=== PATIENT | male | born 2000 | race Caucasian/White ===

== ENCOUNTER 2018-04-13 04:54 | Emergency (ER) | payer OTHER ==
[2018-04-13] MEDS ORDERED: NS 1,000 ML IV ONE ×2 (05:24→05:52)
[2018-04-13] MEDS ORDERED: HALOPERIDOL LACT 5 MG/ML INJ IVP ONE ×2 (05:24→05:54)
--- NOTE | 2018-04-13 05:26 | EDPHY ---
H & P Stated Complaint: abd pain vomiting Time Seen by Provider: 04/13/18 05:24 HPI/ROS: Chief Complaint: Vomiting, abdominal pain HPI: 17-year-old male has been having episodes of nausea and vomiting daily for the last year and a half. He woke this morning and has had multiple episodes of vomiting and is not able to keep anything down. He has been worked up extensively for this including upper and lower endoscopies, GI consultation and psychiatric consultation without a definitive diagnosis. He was diagnosed with celiac disease but his symptoms persisted after he discontinued gluten. He does smoke marijuana daily but has quit for periods up to 2 weeks with no change in his symptoms. He has also been drinking alcohol occasionally. He has had increasing depression but denies being suicidal. He is on antidepressant medications at this time. No fevers or chills. No recent changes to his symptoms. He is presenting this morning because he has been able to keep his medications or anything else down. ROS: 10 systems were reviewed and were negative except those elements noted in the HPI. PMH: Celiac disease Social History: No smoking, occasional alcohol, daily marijuana Family History: non-contributory Physical Exam: Gen: Awake, Alert, No Distress HEENT: Nose: no rhinorrhea Eyes: PERRLA, EOMI Mouth: Moist mucosa Neck: Supple, no JVD Chest: nontender, lungs clear to auscultation Heart: S1, S2 normal, no murmur Abd: Soft, non-tender, no guarding Back: no CVA tenderness, no midline tenderness Ext: no edema, non-tender Skin: no rash Neuro: CN II-XII intact, Sensation grossly intact, Strength 5/5 in bilateral upper and lower extremities - Personal History Current Tetanus/Diphtheria Vaccine: Yes Current Tetanus Diphtheria and Acellular Pertussis (TDAP): Yes - Medical/Surgical History Hx Asthma: No Hx Chronic Respiratory Disease: No Hx Diabetes: No Hx Cardiac Disease: No Hx Renal Disease: No Hx Cirrhosis: No Hx Alcoholism: No Hx HIV/AIDS: No Hx Splenectomy or Spleen Trauma: No - Social History Smoking Status: Current some day smoker Constitutional: Initial Vital Signs Temperature (C) 36.7 C 04/13/18 05:03 Heart Rate 102 H 04/13/18 05:03 Respiratory Rate 18 04/13/18 05:03 Blood Pressure 123/80 H 04/13/18 05:03 O2 Sat (%) 97 04/13/18 05:03 O2 Delivery Mode Room Air Allergies/Adverse Reactions: No Known Allergies Allergy (Unverified 12/13/11 21:25) Home Medications: Medication Instructions Recorded No Medications [NO HOME 1 ea MISC 12/13/11 MEDICATIONS] Lexapro 04/13/18 Nexium 04/13/18 Nortriptyline HCl 04/13/18 Ondansetron HCl Pf 04/13/18 Medical Decision Making ED Course/Re-evaluation: 17-year-old male presenting with daily nausea vomiting. He has worked up extensively for this. He does state that his symptoms persisted after he stopped marijuana however he only suffer 2 weeks. I suspect her might been at moment of cannabinoid hyperemesis with this. Will give him some IV fluids and Haldol here and reassess. - Data Points Laboratory Results: Laboratory Results 04/13/18 05:20 04/13/18 05:20 04/13/18 04/13/18 05:20 05:20 WBC 16.32 10^3/uL H 10^3/uL (3.80-9.50) RBC 5.43 10^6/uL 10^6/uL (4.40-6.38) Hgb 18.1 g/dL H g/dL (13.7-17.5) Hct 51.1 % H % (40.0-51.0) MCV 94.1 fL fL (81.5-99.8) MCH 33.3 pg pg (27.9-34.1) MCHC 35.4 g/dL g/dL (32.4-36.7) RDW 12.5 % % (11.5-15.2) Plt Count 210 10^3/uL 10^3/uL (150-400) MPV 9.0 fL fL (8.7-11.7) Neut % (Auto) 77.1 % H % (39.3-74.2) Lymph % (Auto) 15.4 % % (15.0-45.0) [place] % (Auto) 4.7 % % (4.5-13.0) Eos % (Auto) 0.4 % L % (0.6-7.6) Baso % (Auto) 0.6 % % (0.3-1.7) Nucleat RBC Rel Count 0.0 % % (0.0-0.2) Absolute Neuts (auto) 12.59 10^3/uL H 10^3/uL (1.70-6.50) Absolute Lymphs (auto) 2.52 10^3/uL 10^3/uL (1.00-3.00) Absolute Monos (auto) 0.76 10^3/uL 10^3/uL (0.30-0.80) Absolute Eos (auto) 0.06 10^3/uL 10^3/uL (0.03-0.40) Absolute Basos (auto) 0.10 10^3/uL 10^3/uL (0.02-0.10) Absolute Nucleated RBC 0.00 10^3/uL 10^3/uL (0-0.01) Immature Gran % 1.8 % H % (0.0-1.1) Immature Gran # 0.29 10^3/uL H 10^3/uL (0.00-0.10) Sodium 143 mEq/L mEq/L (135-145) Potassium 4.4 mEq/L mEq/L (3.3-5.0) Chloride 105 mEq/L mEq/L (97-110) Carbon Dioxide 16 mEq/l L mEq/l (22-31) Anion Gap 22 mEq/L H mEq/L (8-16) BUN 20 mg/dL mg/dL (7-23) Creatinine 0.8 mg/dL mg/dL (0.7-1.3) Estimated GFR > 60 Glucose 69 mg/dL L mg/dL (70-100) Calcium 10.1 mg/dL mg/dL (8.5-10.4) Medications Given: Discontinued Medications Diphenhydramine HCl (Benadryl Injection) 50 mg IVP EDNOW ONE Stop: 04/13/18 05:56 Last Admin: 04/13/18 06:01 Dose: 50 mg Haloperidol Lactate (Haldol Injection) 2.5 mg IVP EDNOW ONE Stop: 04/13/18 05:25 Last Admin: 04/13/18 05:30 Dose: 2.5 mg Sodium Chloride (Ns) 1,000 mls @ 0 mls/hr IV ONCE ONE; Wide Open PRN Reason: Protocol Stop: 04/13/18 05:25 Last Admin: 04/13/18 05:30 Dose: 1,000 mls Sodium Chloride (Ns) 1,000 mls @ 0 mls/hr IV ONCE ONE; Wide Open PRN Reason: Protocol Stop: 04/13/18 05:53 Last Admin: 04/13/18 06:01 Dose: 1,000 mls Departure - Departure Disposition: Home, Routine, Self-Care Clinical Impression: Nausea & vomiting Condition: Good Instructions: Acute Nausea and Vomiting (ED) Additional Instructions: Please consider stopping all cannabis use for at least 8 week's to see if this helps with her symptoms. Follow up with her [place] aide in 3-4 days for further evaluation. Return to the emergency department for worsening abdominal pain, uncontrolled nausea vomiting, fevers, fainting, or any other concerns. Referrals: HANNA GLEASON [Primary Care Provider] - As per Instructions
[2018-04-13 05:34] LABS: PLATELET COUNT 210 10^3/uL (150-400)
[2018-04-13 06:43] VITALS: BP 127/76
== END 2018-04-13 06:43 | disposition home or self-care (01) ==
DX: R11.2 Nausea with vomiting, unspecified (principal); E86.9 Volume depletion, unspecified; K90.0 Celiac disease; F17.200 Nicotine dependence, unspecified, uncomplicated
CPT/HCPCS: 96374; J1200; J1630

== ENCOUNTER 2018-04-13 08:09 | Emergency (ER) | payer OTHER ==
[2018-04-13] MEDS ORDERED: ONDANSETRON 4 MG/2 ML VIAL IVP ONE (08:38)
[2018-04-13] MEDS ORDERED: CAPSACIAN 0.075% CREAM TP ONE (08:56)
--- NOTE | 2018-04-13 08:57 | EDPHY ---
H & P Stated Complaint: Continuing mid abdo pain and vomiting, here this am for same. Time Seen by Provider: 04/13/18 08:38 - Personal History Current Tetanus Diphtheria and Acellular Pertussis (TDAP): Unsure - Medical/Surgical History Hx Asthma: No Hx Chronic Respiratory Disease: No Hx Diabetes: No Hx Cardiac Disease: No Hx Renal Disease: No Hx Cirrhosis: No Hx Alcoholism: No Hx HIV/AIDS: No Hx Splenectomy or Spleen Trauma: No Other PMH: Depression. - Social History Smoking Status: Current some day smoker Constitutional: Initial Vital Signs Heart Rate 105 H 04/13/18 08:10 Respiratory Rate 18 04/13/18 08:10 Blood Pressure 114/90 H 04/13/18 08:10 O2 Sat (%) 97 04/13/18 08:10 O2 Delivery Mode Room Air Allergies/Adverse Reactions: No Known Allergies Allergy (Unverified 12/13/11 21:25) Home Medications: Medication Instructions Recorded Lexapro 04/13/18 Nexium 04/13/18 Nortriptyline HCl 04/13/18 Ondansetron HCl Pf 04/13/18 Medical Decision Making - Diagnostics Imaging Results: Imaging Impressions Abdomen CT 04/13/18 09:04 Impression: Normal. No localized intraabdominal inflammatory process. No pneumoperitoneum, pancreatitis, or appendicitis. Findings discussed with Emergency Department physician, Daniel Campbell MD, on 04/13/2018 at 10:07 a.m. Imaging: Discussed imaging studies w/ fisher scallop Radiologist, I viewed and interpreted images myself ED Course/Re-evaluation: CHIEF COMPLAINT: N/V, epigastric pain HISTORY OF PRESENT ILLNESS: The patient is a 17 y/o male with a history of cyclic vomiting and depression returning with his father complaining of persistent vomiting and abdominal pain less than 2 hours after discharge for the same symptoms this morning. He has a long history of nausea and vomiting and has completed extensive work up with gastroenterology and psychiatry without resolution of these symptoms. He reports he vomits daily and last felt at baseline around 21:00 last night, 12 hours ago. Around midnight he developed persistent vomiting with associated epigastric pain, which is a new symptom for him. He describes his pain as localized to his epigastrium, sharp, stabbing, constant, and non-radiating. He denies blood in his vomit or stool. He has not been able to eat or drink much since symptoms began. While pain is severe, his father states he becomes desperate. When he presented to the ED this morning he was treated with pain medication and Zofran and had lab work completed. His symptoms seemed to temporarily improve, but his father reports "he threw up all the way out to the car" after discharge. He notes he drank 2 glasses of wine at 10am yesterday. No history of abdominal surgeries. REVIEW OF SYSTEMS: A 10 point review of systems was performed and is negative with the exception of the elements mentioned in the history of present illness. PHYSICAL EXAM: HR, BP, O2 Sat, RR. Temp noted General Appearance: Alert, well hydrated, appropriate, and anxious-appearing. Head: Atraumatic without scalp tenderness or obvious injury Eyes: Pupils equal, round, reactive to light and accommodation, EOMI, no trauma , no injection. Ears: Clear bilaterally, no perforation, normal landmarks Nose: Atraumatic, no rhinorrhea, clear. Throat: There is no erythema or exudates, no lesions, normal tonsils, mucus membranes moist. Neck: Supple, non-tender, no lymphadenopathy. Respiratory: No retractions, no distress, no wheezes, and no accessory muscle use. Lungs are clear to auscultation bilaterally. Cardiovascular: Regular rate and rhythm, no murmurs, rubs, or gallops. Good capillary refill all extremities. Gastrointestinal: Abdomen is soft, mild epigastric tenderness, non-distended, no masses, no rebound, no guarding, no peritoneal signs. Musculoskeletal: Normal active ROM of all extremities, atraumatic. Neurological: Alert, appropriate, and interactive. Nonfocal. Skin: No rashes, good turgor, no nodules on palpation. PAST MEDICAL HISTORY: Cyclic vomiting, depression - sees therapist regularly. PAST SURGICAL HISTORY: No abdominal surgeries SOCIAL HISTORY: Father at bedside. Lives in [place]. Smoker. DIAGNOSTICS/PROCEDURES/CRITICAL CARE TIME: Abdominal CT: normal DIFFERENTIAL DIAGNOSIS: The differential diagnosis for the patient's abdominal pain included but was not limited to appendicitis, cholecystitis, hernias, testicular torsion, gastritis, and urinary tract infection. MEDICAL DECISION MAKING: This is a 17 y/o male with a history of cyclic vomiting and depression who presents with a 12-hour history of acute onset epigastric pain and persistent vomiting. He reports symptoms feel different from prior episodes of cyclic vomiting and he has not experienced pain like this previously. He appears uncomfortable and anxious and has mild epigastric tenderness on exam. Plan to expand work up from earlier this morning with additional labs and abdominal CT in addition to symptomatic management. 30mg IV Toradol, 4mg IV Zofran, 10mg IV Ketamine, topical capsaicin cream, 1L IV NS ordered. WBC relatively stable from prior visit this morning. Lipase and LFTs are not elevated. Abdominal CT is normal. Reassessed patient and discussed findings. He is continuing to have symptoms. Plan for 20mg IV Ketamine. 1130: Reassessed patient. He is feeling significantly better and appears comfortable and is occasionally smiling. He is able to keep down small amounts of fluid and walked to the bathroom without issue. He denies any suicidal thoughts currently and says he feels good now that his pain has resolved. He feels ready for discharge home. He has a follow up appointment scheduled for tomorrow. 1139: Consulted with patient's therapist, Dr. Leighann Langston ([phone]), at request of patient and his father and updated her on patient condition. She is requesting a psych evaluation here. - Data Points Laboratory Results: Laboratory Results 04/13/18 09:13 04/13/18 09:13 04/13/18 04/13/18 09:13 09:13 WBC 17.27 10^3/uL H 10^3/uL (3.80-9.50) RBC 5.03 10^6/uL 10^6/uL (4.40-6.38) Hgb 16.9 g/dL g/dL (13.7-17.5) Hct 47.9 % % (40.0-51.0) MCV 95.2 fL fL (81.5-99.8) MCH 33.6 pg pg (27.9-34.1) MCHC 35.3 g/dL g/dL (32.4-36.7) RDW 12.5 % % (11.5-15.2) Plt Count 185 10^3/uL 10^3/uL (150-400) MPV 9.1 fL fL (8.7-11.7) Neut % (Auto) 87.3 % H % (39.3-74.2) Lymph % (Auto) 5.5 % L % (15.0-45.0) [place] % (Auto) 5.0 % % (4.5-13.0) Eos % (Auto) 0.1 % L % (0.6-7.6) Baso % (Auto) 0.4 % % (0.3-1.7) Nucleat RBC Rel Count 0.0 % % (0.0-0.2) Absolute Neuts (auto) 15.07 10^3/uL H 10^3/uL (1.70-6.50) Absolute Lymphs (auto) 0.95 10^3/uL L 10^3/uL (1.00-3.00) Absolute Monos (auto) 0.87 10^3/uL H 10^3/uL (0.30-0.80) Absolute Eos (auto) 0.01 10^3/uL L 10^3/uL (0.03-0.40) Absolute Basos (auto) 0.07 10^3/uL 10^3/uL (0.02-0.10) Absolute Nucleated RBC 0.00 10^3/uL 10^3/uL (0-0.01) Immature Gran % 1.7 % H % (0.0-1.1) Immature Gran # 0.30 10^3/uL H 10^3/uL (0.00-0.10) Sodium 142 mEq/L mEq/L (135-145) Potassium 4.1 mEq/L mEq/L (3.3-5.0) Chloride 104 mEq/L mEq/L (97-110) Carbon Dioxide 19 mEq/l L mEq/l (22-31) Anion Gap 19 mEq/L H mEq/L (8-16) BUN 17 mg/dL mg/dL (7-23) Creatinine 0.8 mg/dL mg/dL (0.7-1.3) Estimated GFR > 60 Glucose 88 mg/dL mg/dL (70-100) Calcium 9.5 mg/dL mg/dL (8.5-10.4) Total Bilirubin 1.1 mg/dL mg/dL (0.1-1.4) Conjugated Bilirubin 0.2 mg/dL mg/dL (0.0-0.5) Unconjugated Bilirubin 0.9 mg/dL mg/dL (0.0-1.1) AST 38 IU/L IU/L (17-59) ALT 41 IU/L IU/L (21-72) Alkaline Phosphatase 71 IU/L IU/L (38-126) Total Protein 7.5 g/dL g/dL (6.3-8.2) Albumin 5.0 g/dL g/dL (3.5-5.0) Lipase 17 IU/L L IU/L (23-300) Medications Given: Discontinued Medications Capsaicin (Capsacian 0.075%) 1 isaias TP EDNOW ONE Stop: 04/13/18 08:57 Last Admin: 04/13/18 09:16 Dose: 1 isaias Sodium Chloride (Ns) 1,000 mls @ 0 mls/hr IV EDNOW ONE; Wide Open PRN Reason: Protocol Stop: 04/13/18 09:04 Last Admin: 04/13/18 09:43 Dose: 1,000 mls Sodium Chloride (Ns) 1,000 mls @ 0 mls/hr IV EDNOW ONE; Wide Open PRN Reason: Protocol Stop: 04/13/18 09:04 Last Admin: 04/13/18 10:18 Dose: 1,000 mls Ketamine HCl (Ketamine) 10 mg IVP EDNOW ONE Stop: 04/13/18 09:05 Last Admin: 04/13/18 10:34 Dose: 20 mg Ketamine HCl (Ketamine) 20 mg IV EDNOW ONE Stop: 04/13/18 10:31 Last Admin: 04/13/18 10:38 Dose: Not Given Ketorolac Tromethamine (Toradol) 30 mg IVP EDNOW ONE Stop: 04/13/18 09:04 Last Admin: 04/13/18 09:42 Dose: 30 mg Ondansetron HCl (Zofran) 4 mg IVP EDNOW ONE Stop: 04/13/18 08:39 Last Admin: 04/13/18 08:47 Dose: 4 mg Departure - Departure Disposition: Home, Routine, Self-Care Clinical Impression: Abdominal pain Qualifiers: Abdominal location: epigastric Qualified Code(s): R10.13 - Epigastric pain Nausea & vomiting Qualifiers: Vomiting type: bilious vomiting Qualified Code(s): R11.14 - Bilious vomiting Condition: Good Instructions: Acute Nausea and Vomiting (ED), Abdominal Pain (ED) Additional Instructions: Follow up with your primary care provider next week. Return to the ED for any worsening of condition. Referrals: HANNA GLEASON [Primary Care Provider] - As per Instructions Report Scribed for: Daniel Campbell Report Scribed by: Lizzie Maradiaga Date of Report: 04/13/18 Time of Report: 09:20
[2018-04-13] MEDS ORDERED: NS 1,000 ML IV ONE (09:03)
[2018-04-13] MEDS ORDERED: KETOROLAC 30 MG/1 ML SDV IVP ONE (09:03)
[2018-04-13] MEDS: NS 1,000 ML IV ONE ×2 (09:15→09:43)
[2018-04-13 09:26] LABS: PLATELET COUNT 185 10^3/uL (150-400)
[2018-04-13] MEDS ORDERED: IOPAMIDOL (ISOVUE-300) 100 ML BTL ONE (09:36)
[2018-04-13] MEDS: KETAMINE 200 MG/20 ML VIAL IVP ONE ×2 (09:43→10:34)
[2018-04-13] MEDS ORDERED: KETAMINE 500 MG/10 ML VIAL IV ONE (10:30)
[2018-04-13] MEDS ORDERED: KETAMINE 200 MG/20 ML VIAL ONE (10:31)
[2018-04-13 14:03] VITALS: BP 119/72
== END 2018-04-13 14:05 | disposition home or self-care (01) ==
DX: R11.14 Bilious vomiting (principal); R10.13 Epigastric pain; E86.9 Volume depletion, unspecified; F32.9 Major depressive disorder, single episode, unspecified; F17.200 Nicotine dependence, unspecified, uncomplicated
CPT/HCPCS: 96374; J1885; J2405; Q9967

== ENCOUNTER 2018-06-07 08:17 | Emergency (ER) | payer OTHER ==
[2018-06-07] MEDS ORDERED: NS 1,000 ML IV ONE (08:40)
[2018-06-07] MEDS ORDERED: ONDANSETRON 4 MG/2 ML VIAL IVP ONE (08:41)
[2018-06-07] MEDS ORDERED: HALOPERIDOL LACT 5 MG/ML INJ IVP ONE (09:07)
--- NOTE | 2018-06-07 09:10 | EDPHY ---
H & P Stated Complaint: N/V Time Seen by Provider: 06/07/18 08:57 HPI/ROS: CHIEF COMPLAINT: Nausea vomiting since last evening HISTORY OF PRESENT ILLNESS: 17-year-old male history of cyclic vomiting, in the ER via private vehicle with father complaining of intractable vomiting since last evening. Loose stools have been loose as well. No melena hematochezia. No hematemesis. He was seen the ER previously for similar 2017. He had a similar episode a few weeks ago when he was traveling in [place], [place] however did not seek medical attention as he had sufficient medication to control his vomiting. Patient has seen multiple gastroenterologists about his ongoing symptoms. Denies: Testicular pain, urinary abnormality, headache, abdominal or genitalia trauma, back or flank pain. PRIMARY CARE PROVIDER: REVIEW OF SYSTEMS: 10 systems reviewed and negative with the exception of the elements mentioned in the history of present illness PAST MEDICAL & SURGICAL HISTORY: Depression. Cyclic vomiting. SOCIAL HISTORY:daily marijuana use. Regular alcohol use. PHYSICAL EXAM (Prior to examination, patient consented to physical exam, hands were washed and my usual and customary physical exam procedures followed) 1) GENERAL: Well-developed, well-nourished, alert and oriented. Appears uncomfortable, anxious. He is tearful. Tremulous. 2) HEAD: Normocephalic, atraumatic 3) HEENT: Pupils equal, round, reactive to light bilaterally. Sclera anicteric. Nasopharynx, oropharynx, clear, no lesions. Dry mucous membranes. 4) NECK: Full range of motion, no meningeal signs. 5) LUNGS: Clear auscultation bilaterally, no wheezes, no rhonchi, no retractions. 6) HEART: Regular rate and rhythm, no murmur, no heave, no gallop. 7) ABDOMEN: No guarding, no rebound, no focal tenderness, negative McBurney's, negative Aragon's, negative Rovsing's, negative peritoneal sign, 8) MUSCULOSKELETAL: Moving all extremities, no focal areas of tenderness, no obvious trauma. No peripheral edema or discoloration. 9) BACK: No CVA tenderness, no midline vertebral tenderness, no fluctuance, no step-off, no obvious trauma, no visual or palpable abnormality. 10) SKIN: No rash, no petechiae. 11) Psychiatric: Patient is oriented X 3, there is no agitation. DIFFERENTIAL DIAGNOSIS: [My differential diagnosis includes, but is not limited to, acute appendicitis, acute cholecystitis, bowel obstruction, acute pancreatitis, testicular torsion, gastritis and urinary tract infection. The patient understands that this diagnosis is provisional and can never be 100% accurate. This is a partial list of diagnoses considered. These considerations are based on history, physical exam, past history and reassessment. - Personal History Current Tetanus/Diphtheria Vaccine: Yes - Medical/Surgical History Hx Asthma: No Hx Chronic Respiratory Disease: No Hx Diabetes: No Hx Cardiac Disease: No Hx Renal Disease: No Hx Cirrhosis: No Hx Alcoholism: No Hx HIV/AIDS: No Hx Splenectomy or Spleen Trauma: No Other PMH: Depression. - Social History Smoking Status: Current some day smoker Constitutional: Initial Vital Signs Temperature (C) 36.8 C 06/07/18 08:21 Heart Rate 126 H 06/07/18 08:21 Respiratory Rate 18 06/07/18 08:21 Blood Pressure 133/98 H 06/07/18 08:21 O2 Sat (%) 98 06/07/18 08:21 O2 Delivery Mode Room Air Allergies/Adverse Reactions: No Known Allergies Allergy (Unverified 06/07/18 08:24) Home Medications: Medication Instructions Recorded Lexapro 04/13/18 Nexium 04/13/18 Nortriptyline HCl 04/13/18 Ondansetron HCl Pf 04/13/18 Medical Decision Making ED Course/Re-evaluation: 9:50 p.m.: Re-evaluation, patient feeling improvement although he notes that he has still remained asymptomatic but would like to be discharged home suggest some rest at home noting that he is not sleep last evening. Had a lengthy discussion with the patient, father, mother at this time. The patient notes at this time that he was drinking alcohol last evening and uses self-described"a lot"of marijuana daily basis. He has previously seen gastroenterology at [facility]. At this time I think that acute surgical abdominal pathology such as acute appendicitis is less than likely this patient. Do not think that diagnostic studies indicated at this time. My usual and customary abdominal precautions instructions have been provided. Recommend follow up with primary care provider and with Gastroenterology. Recommend avoidance of alcohol and marijuana. 10:10 a.m.: Parents requested speaking in private. At this time they expressed their r concerns over the patient's alcohol use. The patient does not endorse suicidal or homicidal ideation when I interview him. I do not think the patient meets criteria for an M1 hold. I have encouraged him to seek assistance with his alcohol use and have offered to him referrals which he declines. The parents request to speak with the case packer. 10:19 a.m. I spoke with the case packer and at this time the patient walked out of the ER. - Data Points Laboratory Results: Laboratory Results 06/07/18 08:40 06/07/18 08:40 06/07/18 06/07/18 08:40 08:40 WBC 6.10 10^3/uL 10^3/uL (3.80-9.50) RBC 5.35 10^6/uL 10^6/uL (4.40-6.38) Hgb 17.9 g/dL H g/dL (13.7-17.5) Hct 48.3 % % (40.0-51.0) MCV 90.3 fL fL (81.5-99.8) MCH 33.5 pg pg (27.9-34.1) MCHC 37.1 g/dL H g/dL (32.4-36.7) RDW 11.6 % % (11.5-15.2) Plt Count 306 10^3/uL 10^3/uL (150-400) MPV 8.6 fL L fL (8.7-11.7) Neut % (Auto) 68.4 % % (39.3-74.2) Lymph % (Auto) 17.7 % % (15.0-45.0) [place] % (Auto) 12.6 % % (4.5-13.0) Eos % (Auto) 0.0 % L % (0.6-7.6) Baso % (Auto) 1.0 % % (0.3-1.7) Nucleat RBC Rel Count 0.0 % % (0.0-0.2) Absolute Neuts (auto) 4.17 10^3/uL 10^3/uL (1.70-6.50) Absolute Lymphs (auto) 1.08 10^3/uL 10^3/uL (1.00-3.00) Absolute Monos (auto) 0.77 10^3/uL 10^3/uL (0.30-0.80) Absolute Eos (auto) 0.00 10^3/uL L 10^3/uL (0.03-0.40) Absolute Basos (auto) 0.06 10^3/uL 10^3/uL (0.02-0.10) Absolute Nucleated RBC 0.00 10^3/uL 10^3/uL (0-0.01) Immature Gran % 0.3 % % (0.0-1.1) Immature Gran # 0.02 10^3/uL 10^3/uL (0.00-0.10) Sodium 140 mEq/L mEq/L (135-145) Potassium 3.7 mEq/L mEq/L (3.3-5.0) Chloride 99 mEq/L mEq/L (97-110) Carbon Dioxide 23 mEq/l mEq/l (22-31) Anion Gap 18 mEq/L H mEq/L (6-14) BUN 4 mg/dL L mg/dL (7-23) Creatinine 0.9 mg/dL mg/dL (0.7-1.3) Estimated GFR > 60 Glucose 153 mg/dL H mg/dL (70-100) Calcium 11.0 mg/dL H mg/dL (8.5-10.4) Phosphorus 1.8 mg/dL L mg/dL (2.5-4.5) Total Bilirubin 0.8 mg/dL mg/dL (0.1-1.4) Conjugated Bilirubin 0.3 mg/dL mg/dL (0.0-0.5) Unconjugated Bilirubin 0.5 mg/dL mg/dL (0.0-1.1) AST 50 IU/L IU/L (17-59) ALT 48 IU/L IU/L (21-72) Alkaline Phosphatase 78 IU/L IU/L (38-126) Total Protein 8.0 g/dL g/dL (6.3-8.2) Albumin 5.3 g/dL H g/dL (3.5-5.0) Lipase 55 IU/L IU/L (23-300) Medications Given: Discontinued Medications Diphenhydramine HCl (Benadryl Injection) 25 mg IVP EDNOW ONE Stop: 06/07/18 09:21 Last Admin: 06/07/18 09:21 Dose: 25 mg Haloperidol Lactate (Haldol Injection) 2.5 mg IVP EDNOW ONE Stop: 06/07/18 09:08 Last Admin: 06/07/18 09:10 Dose: 2.5 mg Sodium Chloride (Ns) 1,000 mls @ 0 mls/hr IV EDNOW ONE; Wide Open PRN Reason: Protocol Stop: 06/07/18 08:41 Last Admin: 06/07/18 08:45 Dose: 1,000 mls Lorazepam (Ativan Injection) 1 mg IVP EDNOW ONE Stop: 06/07/18 09:28 Last Admin: 06/07/18 09:58 Dose: Not Given Ondansetron HCl (Zofran) 4 mg IVP EDNOW ONE Stop: 06/07/18 08:42 Last Admin: 06/07/18 08:45 Dose: 4 mg Departure - Departure Disposition: Home, Routine, Self-Care Clinical Impression: Nausea & vomiting Qualifiers: Vomiting type: unspecified Vomiting Intractability: non-intractable Qualified Code(s): R11.2 - Nausea with vomiting, unspecified Condition: Good Instructions: Acute Nausea and Vomiting (ED) Additional Instructions: Seek immediate medical attention if you develop new or worsening symptoms, if you develop fevers, chills, inability to tolerate oral intake or any other symptoms that concerns you. Referrals: HANNA GLEASON [Primary Care Provider] - 1-2 days without fail
[2018-06-07 09:16] LABS: PLATELET COUNT 306 10^3/uL (150-400)
[2018-06-07] MEDS ORDERED: LORazepam 2 MG/ML INJ IVP ONE (09:27)
[2018-06-07 10:23] VITALS: BP 139/91
== END 2018-06-07 10:20 | disposition home or self-care (01) ==
DX: R11.2 Nausea with vomiting, unspecified (principal); E86.9 Volume depletion, unspecified; F32.9 Major depressive disorder, single episode, unspecified; F10.10 Alcohol abuse, uncomplicated; F17.200 Nicotine dependence, unspecified, uncomplicated
CPT/HCPCS: 96374; J1200; J1630; J2405

== ENCOUNTER 2018-09-03 11:42 | Emergency (ER) | payer OTHER ==
[2018-09-03] MEDS ORDERED: NS 1,000 ML IV ONE ×2 (12:13→13:04)
--- NOTE | 2018-09-03 12:47 | EDPHY ---
H & P Stated Complaint: hx cyclical vomiting/colitis n/v since 0600 Time Seen by Provider: 09/03/18 12:47 - Personal History Current Tetanus Diphtheria and Acellular Pertussis (TDAP): Yes - Medical/Surgical History Hx Asthma: No Hx Chronic Respiratory Disease: No Hx Diabetes: No Hx Cardiac Disease: No Hx Renal Disease: No Hx Cirrhosis: No Hx Alcoholism: No Hx HIV/AIDS: No Hx Splenectomy or Spleen Trauma: No Other PMH: Depression.cyclical vomiting - Social History Smoking Status: Current some day smoker Constitutional: Initial Vital Signs Temperature (C) 36.8 C 09/03/18 11:51 Heart Rate 60 09/03/18 11:51 Respiratory Rate 18 09/03/18 11:51 Blood Pressure 118/74 09/03/18 11:51 O2 Sat (%) 99 09/03/18 11:51 O2 Delivery Mode Room Air Allergies/Adverse Reactions: No Known Allergies Allergy (Verified 09/03/18 11:49) Home Medications: Medication Instructions Recorded Lexapro 04/13/18 Nexium 04/13/18 Nortriptyline HCl 04/13/18 Ondansetron HCl Pf 04/13/18 Medical Decision Making ED Course/Re-evaluation: CHIEF COMPLAINT: Nausea and vomiting HISTORY OF PRESENT ILLNESS: The patient is a 18 y/o male with a history of colitis and cyclic vomiting syndrome complaining of nausea and vomiting since 06:00, 7 hours ago. He has been seen in the emergency department in the past for similar symptoms and was given Ketamine, Toradol, and Zofran which alleviated his symptoms. The patient reports that he was sober for 6 days prior to going to [place] for similar days. While in [place] he drank alcohol but did not smoke marijuana. Since returning home he drank alcohol and smoke marijuana, and then subsequently started to vomit and have nausea this morning. He is followed by Dr Churchill (PCP ) and Dr. Gallegos (GI) and is scheduled to have a colonoscopy later this week. No fever, headache, body aches, lightheadedness, chest pain, heart palpitations, shortness of breath, cough, abdominal pain, urinary or bowel complaints, numbness, paresthesias. REVIEW OF SYSTEMS: A comprehensive 10 system review of systems is otherwise negative aside from elements mentioned in the history of present illness and medical decision making. PHYSICAL EXAM: HR, BP, O2 Sat, RR. Temp noted General Appearance: Actively vomiting, alert, appropriate, and non-toxic appearing. Head: Atraumatic without scalp tenderness or obvious injury Eyes: Pupils equal, round, reactive to light and accommodation, EOMI, no trauma , no injection. Ears: Clear bilaterally, no perforation, normal landmarks Nose: Atraumatic, no rhinorrhea, clear. Throat: There is no erythema or exudates, no lesions, normal tonsils, mucus membranes moist. Neck: Supple, 2+ carotid upstroke, nontender, no lymphadenopathy. Respiratory: No retractions, no distress, no wheezes, and no accessory muscle use. Lungs are clear to auscultation bilaterally. Cardiovascular: Regular rate and rhythm, no murmurs, rubs, or gallops. Bilateral carotid, radial, dorsalis pedis, and posterior tibial pulses intact. Good capillary refill all extremities. Gastrointestinal: Abdomen is soft, nontender, non-distended, no masses, no rebound, no guarding, no peritoneal signs. Musculoskeletal: Normal active ROM of all extremities, atraumatic. Neurological: Alert, appropriate, and interactive. The patient has normal DTRs and non-focal cranial nerves, motor, sensory, and cerebellar exam. Skin: No rashes, good turgor, no nodules on palpation. Past medical history: Ulcerative colitis, cyclic vomiting, depression Past surgical history: Denies Family history: Denies Social history: Father at bedside, lives in [place], smoker DIAGNOSTICS/PROCEDURES/CRITICAL CARE TIME: Not indicated. DIFFERENTIAL DIAGNOSIS: The differential diagnosis for the patient's nausea and vomiting included but was not limited to gastroenteritis, gastritis, appendicitis, and medication side effect. MEDICAL DECISION MAKING: The patient is a 18 y/o male with a history of colitis and cyclic vomiting syndrome presenting with nausea and vomiting since 06:00, 7 hours ago. On exam the patient is actively vomiting. Patient reports that Ketamine, Toradol, and Zofran are the best medications to alleviate his symptoms. Labs ordered; 2L IV NS, 20mg IV Ketamine, 30mg IV Toradol, 4mg IV Zofran, and topical Capsaicin administered. Imaging studies are not indicated at this time. 1400: Reassessed patient, he is feeling much better. 1445: Reassessed patient, he would like to be evaluated for an inpatient rehab facility for his alcoholism and depression. We will look into placement; additional labs ordered. 1515: I consulted with the case folder regarding this patient. 1721: Patient has been accepted to [facility] for inpatient rehab and care. Return precautions provided; patient is comfortable with this plan. - Data Points Laboratory Results: Laboratory Results 09/03/18 12:05 09/03/18 12:05 09/03/18 09/03/18 09/03/18 14:45 12:05 12:05 WBC 24.03 10^3/uL H 10^3/uL (3.80-9.50) RBC 4.92 10^6/uL 10^6/uL (4.40-6.38) Hgb 16.5 g/dL g/dL (13.7-17.5) Hct 48.8 % % (40.0-51.0) MCV 99.2 fL fL (81.5-99.8) MCH 33.5 pg pg (27.9-34.1) MCHC 33.8 g/dL g/dL (32.4-36.7) RDW 11.9 % % (11.5-15.2) Plt Count 318 10^3/uL 10^3/uL (150-400) MPV 10.1 fL fL (8.7-11.7) Neut % (Auto) Not Reported Lymph % (Auto) Not Reported Hawkins % (Auto) Not Reported Eos % (Auto) Not Reported Baso % (Auto) Not Reported Nucleat RBC Rel Count Not Reported Absolute Neuts (auto) Not Reported Absolute Lymphs (auto) Not Reported Absolute Monos (auto) Not Reported Absolute Eos (auto) Not Reported Absolute Basos (auto) Not Reported Absolute Nucleated RBC Not Reported Immature Gran % Not Reported Seg Neutrophils % 87.0 % % Band Neutrophils % 2.0 % % Lymphocytes % 5.0 % % Monocytes % 6.0 % % Eosinophils % 0.0 % % Basophils % 0.0 % % Metamyelocytes % 0.0 % % Myelocytes % 0.0 % % Promyelocytes % 0.0 % % Blast Cells % 0.0 % % Immature Gran # Not Reported Absolute Seg Neuts 20.91 10^3/uL H 10^3/uL (1.70-6.50) Absolute Band Neuts 0.48 10^3/uL 10^3/uL (0.00-0.70) Absolute Lymphocytes 1.20 10^3/uL 10^3/uL (1.00-3.00) Absolute Monocytes 1.44 10^3/uL H 10^3/uL (0.30-0.80) Absolute Eosinophils 0.00 10^3/uL L 10^3/uL (0.03-0.40) Absolute Basophils 0.00 10^3/uL L 10^3/uL (0.02-0.10) Absolute Metamyelocyte 0.00 10^3/mL 10^3/mL (0.00-0.00) Absolute Myelocytes 0.00 10^3/mL 10^3/mL (0.00-0.00) Absolute Promyelocytes 0.00 10^3/uL 10^3/uL (0.00-0.00) Absolute Plasma Cells 0.00 10^3/uL 10^3/uL (0.00-0.00) Nucleated RBCs 0 /100 WBC /100 WBC (0-0) Absolute Blast Cells 0.00 10^3/uL 10^3/uL (0.00-0.00) Plasma Cells % 0.0 % % Platelet Estimate ADEQUATE (ADEQ) Polychromasia 1+ H Oval Macrocytes 1+ H Sodium 146 mEq/L H mEq/L (135-145) Potassium 3.0 mEq/L L mEq/L (3.5-5.2) Chloride 105 mEq/L mEq/L (97-110) Carbon Dioxide 13 mEq/l L mEq/l (22-31) Anion Gap 28 mEq/L H mEq/L (6-14) BUN 18 mg/dL mg/dL (7-23) Creatinine 1.0 mg/dL mg/dL (0.7-1.3) Estimated GFR > 60 Glucose 57 mg/dL L mg/dL (70-100) Calcium 10.0 mg/dL mg/dL (8.5-10.4) Ethyl Alcohol 141 mg/dL H mg/dL (0-10) Medications Given: Discontinued Medications Capsaicin (Capsaicin 0.025%) 1 isaias TP EDNOW ONE Stop: 09/03/18 13:05 Last Admin: 09/03/18 13:40 Dose: 1 tube Sodium Chloride (Ns) 1,000 mls @ 0 mls/hr IV ONCE ONE PRN Reason: Wide Open Stop: 09/03/18 12:14 Last Admin: 09/03/18 12:17 Dose: 1,000 mls Sodium Chloride (Ns) 1,000 mls @ 0 mls/hr IV EDNOW ONE; Wide Open PRN Reason: Protocol Stop: 09/03/18 13:05 Last Admin: 09/03/18 13:17 Dose: 1,000 mls Ketamine HCl (Ketamine) 20 mg IVP EDNOW ONE Stop: 09/03/18 13:03 Last Admin: 09/03/18 13:11 Dose: 20 mg Ketorolac Tromethamine (Toradol) 30 mg IVP EDNOW ONE Stop: 09/03/18 13:03 Last Admin: 09/03/18 13:13 Dose: 30 mg Ondansetron HCl (Zofran) 4 mg IVP EDNOW ONE Stop: 09/03/18 13:03 Last Admin: 09/03/18 13:13 Dose: 4 mg Departure - Departure Disposition: Home, Routine, Self-Care Clinical Impression: Alcohol abuse Nausea and vomiting Qualifiers: Vomiting type: cyclical vomiting Vomiting Intractability: non-intractable Qualified Code(s): G43.A0 - Cyclical vomiting, not intractable Depression Qualifiers: Depression Type: unspecified Qualified Code(s): F32.9 - Major depressive disorder, single episode, unspecified Condition: Good Instructions: Acute Nausea and Vomiting (ED), Depression (ED) Additional Instructions: 1. Go directly to [facility]. Referrals: Korin Churchill MD [Primary Care Provider] - As per Instructions Mateo Gallegos MD [Medical Doctor] - As per Instructions Report Scribed for: Daniel Campbell Report Scribed by: Jaycee Spence Date of Report: 09/03/18 Time of Report: 12:48
[2018-09-03] MEDS ORDERED: ONDANSETRON 4 MG/2 ML VIAL IVP ONE (13:02)
[2018-09-03] MEDS ORDERED: KETOROLAC 30 MG/1 ML SDV IVP ONE (13:02)
[2018-09-03] MEDS ORDERED: KETAMINE 200 MG/20 ML VIAL IVP ONE (13:02)
[2018-09-03] MEDS ORDERED: CAPSAICIN 0.025% CREAM TP ONE (13:04)
[2018-09-03 13:12] LABS: PLATELET COUNT 318 10^3/uL (150-400)
[2018-09-03 17:32] VITALS: BP 122/69
--- NOTE | 2018-09-03 18:37 | ASMTCMCOM ---
CM Note CM Note Notes: Pt presented to the ED for nausea and vomiting related to a PMH including colitis and cyclic vomiting syndrome that is worsened with his marijuana abuse. Pt states he has been using marijuana (smoking and edibles) heavily everyday for about the past year and a half. Pt has also abused alcohol for the past year or so and describes it as a binge drinking pattern. Patient's last drink was this morning. Please see H&P for additional information. Pt has a history of depression. Pt denies SI and HI. Pt accompanied to the ED by his father and mother. Pt wants to go to detox and rehab. This CM called [facility] but they wouldn't have a bed available until next week. CM called [facility] [place] in [place] and spoke w/Jessi in Admissions. Jessi reviewed pt's insurance benefits and confirmed they would be able to accept the patient tonight; Jessi spoke w/the pt and completed the intake assessment over the phone. This CM faxed over pt's facesheet, ED provider report;. CM confirmed that pt was accepted for detox and then possible residential stay. Pt discharged and to be transported to [place] by his parents. CM available for further assistance if needed. Date Signed: 09/03/2018 06:36 PM Electronically Signed By:Laney Lewis RN
== END 2018-09-03 17:31 | disposition home or self-care (01) ==
DX: G43.A0 Cyclical vomiting, in migraine, not intractable (principal); F10.10 Alcohol abuse, uncomplicated; F32.9 Major depressive disorder, single episode, unspecified; E86.9 Volume depletion, unspecified; K51.90 Ulcerative colitis, unspecified, without complications; F17.200 Nicotine dependence, unspecified, uncomplicated
CPT/HCPCS: 96374; G0480; J1885; J2405